=== PATIENT | male | born 1940 | race Caucasian/White ===

== ENCOUNTER 2017-08-08 10:30 | Inpatient (IN) | payer OTHER ==
[~2017-08-08] VITALS: Ht 170.2 cm; Wt 63.5 kg
[2017-08-08 11:22] LABS: BASOPHIL (%) 0.4 % (0-1); EOSINOPHIL (%) 0 % (0-5); HEMATOCRIT 38.8 % (38.0-50.0); HEMOGLOBIN 13.5 G/DL (12.5-16.6); IMMATURE GRANULOCYTE (%) 0.8 % (0.0-0.7); LYMPHOCYTE (%) 4.4 % (15-42); LYMPHOCYTE COUNT 0.5 K/uL (1.0-2.8); MCH 29.2 PG (29.0-34.0); MCHC 34.8 G/DL (30.0-36.0); MCV 83.8 FL (86-99); MONOCYTE (%) 8.9 % (3-12); NEUTROPHIL (%) 85.5 % (45-76); NEUTROPHIL COUNT 9.4 K/uL (1.8-6.4); PLATELET COUNT 228 K/uL (156-360); RBC DIS.WIDTH-CV 13.8 % (11.8-14.6); RBC DIS.WIDTH-SD 42.2 % (39-53); RED BLOOD COUNT 4.63 M/uL (4.00-5.50)
[2017-08-08 11:32] LABS: CHLORIDE 94 mEq/L (99-109); POTASSIUM 3.4 mEq/L (3.7-5.4); SODIUM 128 mEq/L (136-147)
[2017-08-08 11:34] LABS: GLUCOSE 114 mg/dL (70-99)
[2017-08-08 11:38] LABS: CREATININE 0.9 mg/dL (0.6-1.3); GFR ESTIMATE (CALCULATED) > 59 mL/min/ (58.99-99999)
[2017-08-08 11:39] LABS: UREA NITROGEN (BUN) 9 mg/dL (9-23)
[2017-08-08] MEDS ORDERED: LEVOTHYROXINE50 MCG PO (13:11)
[2017-08-08] MEDS ORDERED: TYLENOL REGULA325 MG PO (13:12)
[2017-08-08] MEDS ORDERED: ATORVASTATIN CA40 MG PO (13:12)
[2017-08-08] MEDS ORDERED: AMLODIPINE BESYL5 MG PO (13:12)
[2017-08-08 16:45] VITALS: BP 110/61
[2017-08-09 00:13] VITALS: BP 112/58
[2017-08-09 00:35] VITALS: BP 112/58
[2017-08-09 06:29] LABS: HEMATOCRIT 40.2 % (38.0-50.0); HEMOGLOBIN 13.5 G/DL (12.5-16.6); MCH 28.5 PG (29.0-34.0); MCHC 33.6 G/DL (30.0-36.0); PLATELET COUNT 270 K/uL (156-360); RBC DIS.WIDTH-CV 14.3 % (11.8-14.6); RBC DIS.WIDTH-SD 44.6 % (39-53); RED BLOOD COUNT 4.73 M/uL (4.00-5.50); WHITE BLOOD COUNT 12.5 K/uL (4.1-10.2)
[2017-08-09 06:52] LABS: CHLORIDE 99 MEQ/L (99-109); GFR ESTIMATE (CALCULATED) > 59 mL/min/ (58.99-99999); GLUCOSE 151 mg/dL (70-99); POTASSIUM 3.9 MEQ/L (3.7-5.4); UREA NITROGEN (BUN) 13 mg/dL (9-23)
[2017-08-09 07:22] LABS: SODIUM 135 MEQ/L (136-147)
[2017-08-09 07:57] VITALS: BP 114/65
[2017-08-09 16:21] VITALS: BP 110/59
[2017-08-09 23:58] VITALS: BP 123/65
[2017-08-10 07:58] VITALS: BP 123/59
[2017-08-10] MEDS ORDERED: CEFTIN500 MG PO (13:09)
== END 2017-08-10 14:19 | disposition home or self-care (01) | DRG 189 ==
LOC: EME 10:30 → EDOF 12:01 → 5SOUTH 12:01 → ENRESERV 12:02 → 5SOUTH 14:39
PROVIDERS: Emergency Medicine; Internal Medicine
DX: J96.01 Acute respiratory failure with hypoxia (principal); J18.9 Pneumonia, unspecified organism; E87.1 Hypo-osmolality and hyponatremia; E87.6 Hypokalemia; E88.81 Metabolic syndrome and other insulin resistance; I10 Essential (primary) hypertension; M16.12 Unilateral primary osteoarthritis, left hip; Z96.641 Presence of right artificial hip joint; Z85.21 Personal history of malignant neoplasm of larynx; Z87.11 Personal history of peptic ulcer disease; Z87.891 Personal history of nicotine dependence; Z92.3 Personal history of irradiation
CPT/HCPCS: 71045; 80048; 81003; 83605; 85025; 85027; 87040; 94640; 94640 76; 94799; 99202; 99281; 99285; J0456; J0696; J1650; J2920; J7030